=== PATIENT | female | born 1960 | race Caucasian/White ===

== ENCOUNTER → 2016-10-23 | Outpatient (CLI) | payer BC | LOC: MC.RAD 10-12 13:00 | DX: Z12.31 Encounter for screening mammogram for malignant neoplasm of breast (principal); N64.89 Other specified disorders of breast ==

== ENCOUNTER → 2016-10-28 | Outpatient (CLI) | payer BC | LOC: MC.RAD 13:23 | DX: Z12.39 Encounter for other screening for malignant neoplasm of breast (principal) ==

== ENCOUNTER → 2017-10-25 | Outpatient (CLI) | payer BC | LOC: MC.RAD 11:00 | DX: Z12.31 Encounter for screening mammogram for malignant neoplasm of breast (principal) ==

== ENCOUNTER → 2018-12-22 | Outpatient (CLI) | payer BC | LOC: MC.RAD 14:53 | DX: Z12.31 Encounter for screening mammogram for malignant neoplasm of breast (principal) ==

== ENCOUNTER 2019-04-20 11:24 | Emergency (ER) | payer BC ==
[~2019-04-20] VITALS: Ht 162.6 cm; Wt 63.2 kg
[2019-04-20 11:34] VITALS: BP 106/62; PULSE 88; TEMP 98.6
[2019-04-20] MEDS ORDERED: XANAX .25M0.25 MG/TA PO (12:21)
== END 2019-04-20 12:53 | disposition home or self-care (01) ==
LOC: COL.ER 11:24
DX: Z20.3 Contact with and (suspected) exposure to rabies (principal); F41.9 Anxiety disorder, unspecified; F17.210 Nicotine dependence, cigarettes, uncomplicated; Z98.890 Other specified postprocedural states

== ENCOUNTER → 2019-04-23 | Outpatient (CLI) | payer BC ==
[~2019-04-23] VITALS: Ht 162.6 cm; Wt 63.2 kg
[~2019-04-23] MED LIST: XANAX .25M0.25 MG/TA PO
[2019-04-23 11:29] VITALS: BP 120/60; PULSE 63; TEMP 98.2
== END | disposition home or self-care (01) ==
LOC: COL.ER 11:02
DX: Z23 Encounter for immunization (principal); Z20.3 Contact with and (suspected) exposure to rabies

== ENCOUNTER → 2020-02-16 | Outpatient (CLI) | payer BC | LOC: MC.RAD 11:17 | DX: Z12.31 Encounter for screening mammogram for malignant neoplasm of breast (principal) ==

== ENCOUNTER → 2021-01-28 | Outpatient (CLI) | payer BC | LOC: MC.RAD 11:02 | DX: Z12.31 Encounter for screening mammogram for malignant neoplasm of breast (principal) ==

== ENCOUNTER → 2022-02-18 | Outpatient (CLI) | payer BC | LOC: MC.RAD 11:10 | DX: Z12.31 Encounter for screening mammogram for malignant neoplasm of breast (principal) ==

== ENCOUNTER → 2024-01-21 | Outpatient (CLI) | payer BC | LOC: MC.RAD 10:51 | DX: Z12.31 Encounter for screening mammogram for malignant neoplasm of breast (principal) ==